=== PATIENT | male | born 1990 | race African-American/Black ===

== ENCOUNTER 2016-07-05 23:25 | Emergency (ER) | payer OTHER ==
[~2016-07-05] VITALS: Ht 180.3 cm; Wt 79.8 kg
[~2016-07-05 23:25] MED LIST: KEFLEX500 MG PO; NAPROSYN500 MG PO; NAPROXEN500 MG PO; NOHOMEMEDS; TRAMADOL HCL50 MG PO; ZYRTEC10 M2 PO
[2016-07-05 23:31] VITALS: BP 153/123
[2016-07-05] MEDS ORDERED: MOTRIN (23:54)
== END 2016-07-06 00:26 | disposition left against medical advice (07) ==
LOC: EME 23:25
DX: R51 Headache (principal); R11.2 Nausea with vomiting, unspecified; R42 Dizziness and giddiness; H53.8 Other visual disturbances; Z87.820 Personal history of traumatic brain injury; F17.200 Nicotine dependence, unspecified, uncomplicated; Z71.6 Tobacco abuse counseling
CPT/HCPCS: 99281; 99284